=== PATIENT | male | born 1945 | race Two or more races ===

== ENCOUNTER 2019-01-26 08:00 | Day surgery (SDC) | payer MEDICARE, BC ==
[2019-01-26] MEDS ORDERED: ONDANSETRON 4 MG INJ IV (10:30)
[2019-01-26] MEDS ORDERED: PROPOFOL 40 ML (10:31)
[2019-01-26] MEDS ORDERED: LIDOCAINE 2% (SDV) 5 ML INJ (10:31)
[2019-01-26] MEDS ORDERED: PROPOFOL 20 ML (10:59)
[2019-01-26] MEDS ORDERED: EPHEDrine 25 MG/5 ML SYG (10:59)
== END 2019-01-26 16:24 | disposition home or self-care (01) ==
LOC: GIL 08:00
DX: R19.4 Change in bowel habit (principal); K64.8 Other hemorrhoids; K57.30 Diverticulosis of large intestine without perforation or abscess without bleeding; K44.9 Diaphragmatic hernia without obstruction or gangrene; K21.0 Gastro-esophageal reflux disease with esophagitis; K29.50 Unspecified chronic gastritis without bleeding; E03.9 Hypothyroidism, unspecified; Z86.010 Personal history of colon polyps
CPT/HCPCS: 43239; 88305; 88312